=== PATIENT | female | born 1930 | race Caucasian/White ===

== ENCOUNTER 2018-02-10 17:41 | Observation (INO) | payer MEDICARE, MEDICAID ==
[2018-02-10 18:27] LABS: Hemoglobin 9.3 g/dL (12.0-16.0); Mean Corpuscular HGB CONC 32.4 g/dL (32.0-36.0); Mean Corpuscular Hemoglobin 37.9 pg (27.0-31.0); Platelet Count 299 thou/uL (130-400); Red Blood Cell (RBC) Count 2.46 mill/uL (4.20-5.40); White Blood Cell (WBC) Count 7.7 thou/uL (4.8-10.8)
[2018-02-10 18:38] LABS: Anisocytosis MODERATE=16-30 cells (100X) (0-5/hpf); Band 12 % (5-11); Eosinophils 1 % (0-10); Lymphocytes 17 % (21-51); MDiff Complete? YES; Macrocytosis SLIGHT = 6-15 cells (100X) (0-5/hpf); Monocytes 2 % (0-10); Neutrophil 66 % (42-75); Nucleated RBC 2 % (0); Ovalocytes SLIGHT = 2-5 cells (100X) (0-1/hpf); PLT Morphology Comment Appears Adequate; Polychromasia SLIGHT = 2-3 cells (100X) (0-2/hpf); Schistocytes SLIGHT = 2-5 cells (100X) (0-1/hpf)
[2018-02-10 18:39] LABS: ALT (SGPT) 44 U/L (8-55); AST (SGOT) 33 U/L (5-34); Albumin 4.3 g/dL (3.4-4.8); Alkaline Phosphatase 103 U/L (40-150); Anion Gap 13 mmol/L (10-20); BUN (Urea Nitrogen) 31 mg/dL (9.8-20.1); Bilirubin, Total 1.4 mg/dL (0.2-1.2); CK (CPK) 83 U/L (29-168); Calc. Creatinine Clearance 0 mL/min (70-130); Calcium 9.3 mg/dL (7.8-10.44); Carbon Dioxide 23 mmol/L (23-31); Chloride 109 mmol/L (98-107); Estimated GFR-MDRD 39; Globulin 2.8 g/dL (2.4-3.5); Glucose 123 mg/dL (83-110); Potassium 4.7 mmol/L (3.5-5.1); Protein, Total 7.1 g/dL (6.0-8.3); Sodium 140 mmol/L (136-145)
[2018-02-10 18:43] LABS: CKMB 1.7 ng/mL (0-6.6); Troponin I Less than 0.010 ng/mL (< 0.028)
[2018-02-10] MEDS ORDERED: Nitroglycerin 2% Ointment 1 INCH/1 GM Packet ONE (18:57)
[2018-02-10] MEDS ORDERED: Nitroglycerin 0.4 MG TAB (25 Tab Bottle) ONE (18:57)
--- NOTE | 2018-02-10 19:44 | RAD ---
PORTABLE CHEST: 02/10/2018 PROVIDED CLINICAL HISTORY: Chest pain and shortness of breath. COMPARISON: 02/13/2016 FINDINGS: The cardiac silhouette remains enlarged. Median sternotomy changes and atherosclerosis are redemonst rated. Chronic appearing lung parenchymal changes are redemonstrated. A prominent appearance to the right hilum is again seen, stable. Blunting of the right costophrenic angle is again noted, slightl y more conspicuous than on the prior study. There is no evidence for pneumothorax. IMPRESSION: No evidence for an acute cardiopulmonary process. POS: [facility]
[2018-02-10 22:09] LABS: Troponin I 0.012 ng/mL (< 0.028)
[2018-02-10] MEDS ORDERED: Acetaminophen 325 MG TAB PO PRN ×2 (22:10→22:36)
[2018-02-10 22:15] VITALS: BMI 21.4
[2018-02-10] MEDS ORDERED: Ondansetron HCl/PF 4 MG/2 ML Vial IVP PRN (22:36)
[2018-02-10] MEDS ORDERED: Ondansetron ODT 4 MG TAB PO PRN (22:36)
[2018-02-10] MEDS ORDERED: Temazepam 15 MG CAP PO PRN (22:37)
[2018-02-10] MEDS ORDERED: cloNIDine 0.1 MG TAB PO SCH (22:45)
[2018-02-11 01:19] LABS: Troponin I 0.016 ng/mL (< 0.028)
[2018-02-11] MEDS ORDERED: Calcium Carbonate 500 MG ChewTAB PO PRN (02:35)
[2018-02-11] MEDS ORDERED: Mag-Al 1200 mg/1200 mg/30 ML UDCUP PO PRN (02:35)
[2018-02-11] MEDS ORDERED: Senokot 8.6 MG TAB PO PRN (02:35)
[2018-02-11] MEDS ORDERED: Nitroglycerin 0.4 MG TAB (25 Tab Bottle) PO PRN (02:35)
[2018-02-11] MEDS ORDERED: Nitroglycerin 2% Ointment 1 INCH/1 GM Packet TOP SCH (03:00)
[2018-02-11] MEDS ORDERED: Pantoprazole 40 MG VIAL IVP SCH (03:15)
--- NOTE | 2018-02-11 03:18 | HP ---
DATE OF ADMISSION: 02/11/2018 Patient was seen and examined on 02/11/2018 CHIEF COMPLAINT: Chest discomfort. HISTORY OF PRESENT ILLNESS: Patient is an 87-year-old female followed at [facility] pres ented to the emergency room with chest discomfort that started around 4:30 p.m. She also felt nauseo us and had 4-5 episodes of vomiting. She denies any diaphoresis, palpitations, or syncope. No willard e in her lower extremity edema reported. She is compliant with all of her home medications. She had similar chest pain 4 days ago that lasted for 3 hours or so. The chest discomfort was pressure-like 8/10, without any aggravating or relieving factor. She had some shortness of breath that has improv ed. In the emergency room, EKG showed sinus rhythm with right-bundle branch block. Troponins were negati ve. She received aspirin, sublingual nitroglycerin, and 1-inch nitropatch was placed. PAST MEDICAL HISTORY: 1. Coronary artery disease, status post coronary artery bypass grafting. 2. Hypertension. 3. Chronic diastolic heart failure. 4. Hypothyroidism. 5. Chronic anemia requiring blood transfusions in the past. She is currently followed by Dr. Farnsworth. 6. History of paroxysmal atrial fibrillation, not an anticoagulation candidate. 7. Chronic kidney disease, stage 3. 8. Degenerative joint disease. 9. Hypertension. 10. History of TIA. 11. Dyslipidemia. PAST SURGICAL HISTORY: 1. Coronary artery bypass grafting. 2. Bladder lift surgery. 3. Hysterectomy. 4. Left knee surgery. 5. Left hip surgery. ALLERGIES: Patient is allergic to SULFA. CURRENT HOME MEDICATIONS: Aggrenox twice a day, Lipitor 80 mg daily, clonidine 0.1 mg twice a day, f entanyl patch 50 mcg daily, Advair Diskus 250/50 b.i.d., hydralazine 50 mg 3 times daily, levothyroxi ne 25 mcg daily, metoprolol tartrate 50 mg b.i.d., temazepam as needed, terazosin 5 mg at bedtime, to rsemide 20 mg daily. SOCIAL HISTORY: Patient currently lives at home. Denies any smoking, alcohol, or drug use. She has good family support. She makes her own decision with help of her family. FAMILY HISTORY: Patient is adopted. REVIEW OF SYSTEMS: The following complete review of systems was negative, unless otherwise mentioned in the HPI or below: Constitutional: Weight loss or gain, ability to conduct usual activities. Sk in: Rash, itching. Eyes: Double vision, pain. ENT/Mouth: Nose bleeding, neck stiffness, pain, te nderness. Cardiovascular: Palpitations, dyspnea on exertion, orthopnea. Respiratory: Shortness of breath, wheezing, cough, hemoptysis, fever, or night sweats. Gastrointestinal: Poor appetite, abdo michael pain, heartburn, nausea, vomiting, constipation, or diarrhea. Genitourinary: Urgency, frequen cy, dysuria, nocturia. Musculoskeletal: Pain, swelling. Neurologic/Psychiatric: Anxiety, depressi on. Allergy/Immunologic: Skin rash, bleeding tendency. PHYSICAL EXAMINATION: VITAL SIGNS: In the emergency room showed temperature 98.1, respiration 24, pulse rate of 57 with a blood pressure of 204/71 with O2 saturation 98% on room air. GENERAL: An 87-year-old female in no apparent distress. Continues to have chest discomfort. HEENT: Head atraumatic, normocephalic. Sclerae anicteric. Moist mucous membrane. No oral lesion. NECK: Supple, no JVD appreciated. No carotid bruit. LUNGS: Clear to auscultation bilaterally with scattered rhonchi. No significant rales or wheezing n oted. HEART: S1, S2 present. Regular rate and rhythm. Healed midline scar from previous CABG. There was 3/6 systolic murmur over the mitral area. ABDOMEN: Soft, nontender, bowel sounds present. EXTREMITIES: Left lower extremity 2+ edema noted. Per patient report, this is chronic. NEUROLOGIC: Grossly nonfocal, moves all four extremities. PSYCHIATRY: Alert, awake, oriented x3. SKIN: Warm and dry. LYMPH NODES: No palpable lymph nodes in the neck. PERIPHERAL VASCULAR: Radial pulses palpable bilaterally. MUSCULOSKELETAL: No joint swelling or tenderness. LABORATORY FINDINGS: 1. CBC showed WBC 7.7 with hemoglobin 9.3, hematocrit 28.8, platelet of 299. 2. Chemistries showed sodium 140, potassium 4.7, chloride 109, bicarbonate 23, BUN 31, creatinine 1. 29. 3. Total bilirubin 1.4. 4. Troponins were negative. Chest x-ray by my review was negative for infiltrate or significant edema. EKG by my review showed s inus bradycardia with right axis deviation with incomplete right bundle branch block and nonspecific ST-T wave changes. IMPRESSION: 1. Chest discomfort, rule out acute coronary syndrome. Chest pain with nausea and 4-5 episodes of v omiting. Possibilities include anginal pain versus peptic ulcer disease. 2. Coronary artery disease, status post coronary artery bypass grafting. 3. History of transient ischemic attack currently on Aggrenox. 4. Chronic diastolic heart failure. 5. Hypertension with hypertensive urgency. 6. Chronic anemia requiring blood transfusions followed by Dr. Farnsworth. 7. Chronic pain syndrome on chronic fentanyl patch. 8. Hypothyroidism. 9. Anxiety. 10. Hyperlipidemia. 11. Degenerative joint disease. 12. History of paroxysmal atrial fibrillation. 13. Chronic obstructive pulmonary disease. PLAN: Patient will be monitored on the telemetry unit overnight. Cardiology will be consulted. We will check BNP in a.m. We will repeat CBC in a.m. due to 12% bandemia. We will continue all of her home medications. P.r.n. medications will be added. She will benefit from a GI consultation as outp atient due to nausea and vomiting. We will start her on PPIs. Plan of care was discussed with patient in detail. She stated understanding.
[2018-02-11] MEDS: Levothyroxine Sodium 25 MCG TAB PO SCH (04:12)
[2018-02-11 06:09] LABS: #Basophils 0.1 thou/uL (0.0-0.2); #Lymphocytes 0.6 thou/uL (1.20-3.40); #Monocytes 0.7 thou/uL (0.11-0.59); #Neutrophils 6.7 thou/uL (1.40-6.50); %Basophils 0.7 % (0.0-1.0); %Eosinophils 0.1 % (0.0-10.0); %Lymphocytes 7.6 % (21.0-51.0); %Neutrophils 82.6 % (42.0-75.0); Hemoglobin 7.9 g/dL (12.0-16.0); Mean Corpuscular HGB CONC 32.3 g/dL (32.0-36.0); Mean Corpuscular Hemoglobin 38.3 pg (27.0-31.0); Mean Platelet Volume 8.6 fL (7.4-10.4); Platelet Count 257 thou/uL (130-400); Red Blood Cell (RBC) Count 2.06 mill/uL (4.20-5.40); White Blood Cell (WBC) Count 8.1 thou/uL (4.8-10.8)
[2018-02-11 06:24] LABS: ALT (SGPT) 139 U/L (8-55); AST (SGOT) 175 U/L (5-34); Albumin 3.7 g/dL (3.4-4.8); Alkaline Phosphatase 217 U/L (40-150); Anion Gap 10 mmol/L (10-20); BUN (Urea Nitrogen) 31 mg/dL (9.8-20.1); Bilirubin, Total 1.3 mg/dL (0.2-1.2); Calc. Creatinine Clearance 24 mL/min (70-130); Calcium 9.2 mg/dL (7.8-10.44); Carbon Dioxide 26 mmol/L (23-31); Chloride 109 mmol/L (98-107); Estimated GFR-MDRD 38; Globulin 2.3 g/dL (2.4-3.5); Glucose 122 mg/dL (83-110); Lipase 28 U/L (8-78); Magnesium 2.4 mg/dL (1.6-2.6); Phosphorus 3.9 mg/dL (2.3-4.7); Potassium 4.6 mmol/L (3.5-5.1); Sodium 140 mmol/L (136-145)
--- NOTE | 2018-02-11 08:10 | ULT ---
RIGHT UPPER QUADRANT SONOGRAM: HISTORY: Right upper quadrant pain. Abnormal liver function tests. FINDINGS: A small amount of echogenic sludge and small nonshadowing stones are present within the gallbladder n isadora. There is minimal pericholecystic fluid. Gallbladder is distended slightly greater than 8 cm wi th borderline wall thickening. The common duct is 0.5 cm. The liver shows no focal abnormalities. Right pleural fluid is partially visualized. IMPRESSION: Cholelithiasis. Sonographic findings of acute cholecystitis include distention, borderline wall thic kening, and a small amount of pericholecystic fluid. Clinical correlation regarding other signs and symptoms of acute cholecystitis is required. POS: [facility]
[2018-02-11] MEDS: Docusate 100 MG CAP PO SCH ×2 (08:28→19:57)
[2018-02-11] MEDS: Aggrenox 200-25mg CAP PO SCH ×2 (08:28→19:56)
[2018-02-11] MEDS: cloNIDine 0.1 MG TAB PO SCH ×2 (08:28→19:56)
[2018-02-11] MEDS: Torsemide 20 MG TAB PO SCH (08:29)
[2018-02-11] MEDS ORDERED: Metoprolol Tartrate 50 MG TAB PO SCH (09:00)
[2018-02-11] MEDS: hydrALAZINE 20 MG/ML VIAL SLOW IVP PRN (12:36)
--- NOTE | 2018-02-11 19:53 | CON ---
DATE OF CONSULTATION: 02/11/2018 CHIEF COMPLAINT: Chest pain. HISTORY OF PRESENT ILLNESS: This is an 87-year-old female who presents with a history of chest pain, substernal, sharp, kind of a burning pain, admitted to the hospital, had a cardiac workup which is n egative, found to have elevation of her liver function test, has had ultrasound. Ultrasound shows ga llstones, common bile duct is 5 mm. She has never had symptoms of right upper quadrant pain, jaundic e or pancreatitis. Never known previous history of gallstones. Denies chronic abdominal pain. She does have occasional nausea and reflux type symptoms. PAST MEDICAL HISTORY: Includes coronary artery disease, CHF, hypothyroidism; anemia, chronic; atrial fibrillation, stage 3 kidney disease, hypertension, and dyslipidemia. PAST SURGICAL HISTORY: CABG, bladder lift, hysterectomy, left knee, left hip. ALLERGIES: allergic to SULFA medicine. See list. SOCIAL HISTORY: Lives at home. No smoking, alcohol or other drugs. REVIEW OF SYSTEMS: Ten system review of systems is otherwise negative unless described above. PHYSICAL EXAMINATION: VITAL SIGNS: Blood pressure is 196/83, pulse is 70, respirations are 20, O2 sat is 94% on 2 liters. She is afebrile. HEENT: Sclerae are anicteric. Oropharynx clear. NECK: No lymphadenopathy. CHEST: Clear. HEART: Regular rate. ABDOMEN: Soft, nontender, nondistended. Well-healed midline incision without hernia. LABORATORY DATA: White blood cell count is 8, hemoglobin 7.9, platelet count is 257. Sodium 140, po tassium 4.6, creatinine 1.31, bilirubin 1.3. AST, ALT are 175, 139. Alkaline phosphatase is 217, li pase normal at 28. Ultrasound shows gallstones, common bile duct 5 mm. ASSESSMENT AND PLAN: Gallstones, questionable whether she has symptoms or not. Given her liver func tion test, I explained to her that normally we would perform laparoscopic cholecystectomy and intraop erative cholangiogram. However, in her case, we could follow a more conservative approach. She is p retty adamant that she does not want any kind of surgical procedures now. She is convinced she had i ndigestion. I gave her my card. She is going to call my office if she develops further symptoms. H er liver function test elevation could be from a little passive congestion from right-sided heart sameer lure if she has that.
[2018-02-11] MEDS: Terazosin HCl 5 MG CAP PO SCH (19:56)
[2018-02-11] MEDS: Pantoprazole 40 MG VIAL IVP SCH (19:58)
[2018-02-11] MEDS ORDERED: Loratadine 10 MG TAB PO PRN (20:24)
--- NOTE | 2018-02-11 23:23 | PDOC.PN ---
- Subjective Encounter Start Date: 02/11/18 Encounter Start Time: 14:00 Subjective: follow up for chest pain. nsg notes rev, edd ovn, no new c/o -: no active chest pain, does still have occasional SOB with mild exertion and -: some nausea but is also quite hungry - Objective Resuscitation Status: Resuscitation Status FULL:Full Resuscitation Vital Signs & Weight: Vital Signs (12 hours) Temp Pulse Resp BP BP Pulse Ox 02/11/18 19:56 97.8 F 66 18 198/72 H 97 02/11/18 15:12 97.3 F L 70 21 H 196/83 H 94 L 02/11/18 13:34 61 177/97 H 02/11/18 12:36 62 208/84 H 02/11/18 12:30 62 208/84 H 02/11/18 11:42 97.9 F 62 20 195/84 H 97 Weight Weight 117 lb 1 oz I&O: 02/10/18 02/11/18 02/12/18 06:59 06:59 06:59 Intake Total 240 240 Output Total 200 700 Balance 40 -460 Result Diagrams: 02/11/18 00:40 02/11/18 00:40 Phys Exam - Physical Examination HEENT: moist MMs, sclera anicteric Respiratory: no wheezing, no rales, no rhonchi, clear to auscultation bilateral Cardiovascular: RRR, no significant murmur, no rub Gastrointestinal: soft, non-tender, no distention, positive bowel sounds Neurological: moves all 4 limbs Psychiatric: normal affect Dx/Plan - Plan * chest pain * negative troponins * incentive spirometry * appreciate cardiology c/s * ECHO with EF 55-60% noted elevated pulm aa pressure suggestive of PAH - continue O2 support, diuretics with torsemide and aggrenox use, will need continued o/p f/u nausea, vomiting, transaminitis * particularly in setting of transaminitis, concern for acute cholecystitis as contributing to patient's presentation * appreciate surgery c/s * pt declines surgical intervention at this point in time - will trial liquid diet, advance as tolerated as a bland diet * recheck CMP in AM, continue with medical management diet: as above activity: as above dvt ppx potential d/c in next 24-48 hrs if at baseline function, hemodynamically stable without further complaints or symptoms Review of Systems - Medications/Allergies Allergies/Adverse Reactions: Allergies Allergy/AdvReac Type Severity Reaction Status Date / Time Sulfa (Sulfonamide Allergy Mild Rash Verified 09/13/14 22:19 Antibiotics) Medications: Current Medications Acetaminophen (Tylenol) 650 mg PO Q4H PRN PRN Reason: Headache/Fever or Mild Pain Al Hydroxide/Mg Hydroxide (Maalox) 30 ml PO Q6H PRN PRN Reason: Heartburn or Indigestion Calcium Carbonate (Tums) 1,000 mg PO Q4H PRN PRN Reason: Heartburn or Indigestion Clonidine (Catapres) 0.1 mg PO Q4H PRN PRN Reason: Systolic BP > 180 Last Admin: 02/11/18 23:29 Dose: 0.1 mg Clonidine (Catapres) 0.1 mg PO BID [facility] Last Admin: 02/11/18 19:56 Dose: 0.1 mg Dipyridamole/Aspirin (Aggrenox) 1 cap PO BID [facility] Last Admin: 02/11/18 19:56 Dose: 1 cap Docusate Sodium (Colace) 100 mg PO BID [facility] Last Admin: 02/11/18 19:57 Dose: Not Given Fentanyl (Duragesic) 50 mcg TD Q3D [facility] Hydralazine HCl (Apresoline) 5 mg SLOW IVP Q4H PRN PRN Reason: SBP Greater Than 180 Last Admin: 02/11/18 12:36 Dose: 5 mg Levothyroxine Sodium (Synthroid) 25 mcg PO 0600 [facility] Last Admin: 02/11/18 04:12 Dose: 25 mcg Loratadine (Claritin) 10 mg PO DAILYPRN PRN PRN Reason: .ALLERGIES Last Admin: 02/11/18 20:53 Dose: 10 mg Nitroglycerin (Nitrostat) 0.4 mg PO Q5MIN PRN PRN Reason: Chest Pain Ondansetron HCl (Zofran Odt) 4 mg PO Q6H PRN PRN Reason: Nausea/Vomiting Last Admin: 02/10/18 22:50 Dose: 4 mg Ondansetron HCl (Zofran) 4 mg IVP Q6H PRN PRN Reason: Nausea/Vomiting Pantoprazole Sodium (Protonix) 40 mg IVP Q12HR [facility] Last Admin: 02/11/18 19:58 Dose: 40 mg Senna (Senokot) 2 tab PO HSPRN PRN PRN Reason: Constipation Sodium Chloride (Flush - Normal Saline) 10 ml IVF Q12HR [facility] Last Admin: 02/11/18 19:58 Dose: 10 ml Sodium Chloride (Flush - Normal Saline) 10 ml IVF PRN PRN PRN Reason: Saline Flush Temazepam (Restoril) 15 mg PO HS PRN PRN Reason: Insomnia Last Admin: 02/10/18 22:50 Dose: 15 mg Terazosin HCl (Hytrin) 5 mg PO HS [facility] Last Admin: 02/11/18 19:56 Dose: 5 mg Torsemide (Demadex) 20 mg PO DAILY [facility] Last Admin: 02/11/18 08:29 Dose: 20 mg
[2018-02-11] MEDS: cloNIDine 0.1 MG TAB PO PRN (23:29)
--- NOTE | 2018-02-12 00:20 | CON ---
DATE OF CONSULTATION: 02/11/2018 HISTORY OF PRESENT ILLNESS: Neetu Smith is an 87-year-old white female that I initially evaluated in 10/2011. At that time, she denied any previous cardiac problems. She was told that she had transient ischemic attack and a carotid Doppler was performed which showed 60%-70% left internal carotid artery stenosis in 06/2008. She was placed on Plavix, but not aspirin after that. I initially saw her in 10/2011. She has undergone laparoscopic vaginal hysterectomy and bilateral salpingo-oophorectomy and anterior repair with cystoscopy. During the procedure, it was noted that her ST segments depressed over baseline. Nitrates were placed and she seemed to have improvement in her EKG changes. She was placed on telemetry after surgery. She denied any history of exertional chest discomfort. She would have chest burning and reflux while supine in bed. Ultimately, she underwent cardiac catheterization which revealed left main and 3-vessel coronary artery disease with preserved left ventricular function. On 11/18/2011, she underwent CABG x5 with BARBER to the LAD, left radial to the first diagonal, separate reverse greater saphenous veins to the first obtuse marginal, second obtuse marginal, and right posterior descending. She had acute renal insufficiency after bypass surgery and was slow to undergo rehabilitation. She was discharged on postop day 22 with creatinine having come down to 1.7, BUN down to 95. She returned 6 days later with increased shortness of breath. She was found to have opacification of one-half of her lung field on the left and underwent thoracentesis removing 1 to 1.5 L. After that, she never came to the office for followup. I did not see her again until 11/2012 when she was admitted to the hospital with difficulty speaking. She also had supraventricular tachycardia with heart rates of 170-180. Echo revealed ejection fraction of 50% -55% with diastolic dysfunction. She was hospitalized again in 12/2012 with anemia and was transfused. Her hemoglobin was 5.3. She was again hospitalized in 01/2013, transfused 3 units of blood again for hemoglobin 6.8. She apparently underwent outpatient GI workup although I am not certain what that showed. She was seen intermittently in the office in 01/2013. She apparently developed a GI bleed after being placed on Plavix for TIA symptoms. I discontinued that and started her on Aggrenox. In 05/2013, she was placed on bone marrow medications. She denied any chest discomfort. She was again admitted in 2013 with increased cough with high sputum, then turning yellow and increasing leg edema. She would have some episodes of PND. It was felt that she had acute on chronic diastolic heart failure. She was diuresed. She returned to the office once in 03/2014 and in 04/2014. I have not seen her in the last 3-1/ 2 years since 06/2014. She now is admitted with increased episode of chest discomfort. On 02/07, she had 3 or 4 hours of chest discomfort accompanied by nausea and vomiting. This then resolved. Again, yesterday she had 4 or 5 hours of chest discomfort. The discomfort was continuous. She had some mild shortness of breath associated with that. She denies any chest discomfort today. PAST MEDICAL HISTORY: Hypertension, hyperlipidemia, coronary artery disease, COPD, history of diastolic heart failure, history of atrial fibrillation, renal insufficiency, arthritis, GERD, TIA, hypothyroidism, chronic anemia requiring blood transfusions, chronic kidney disease. OPERATIONS: CABG, bladder lift surgery, hysterectomy, left knee surgery, left hip surgery. MEDICATIONS: Aggrenox 1 b.i.d., atorvastatin 80 daily, clonidine 0.1 mg b.i.d. , fentanyl patch 50 mcg daily, Advair b.i.d., hydralazine 50 mg t.i.d., levothyroxine 25 mcg daily, metoprolol 50 b.i.d., temazepam p.r.n., terazosin 5 mg at bedtime, torsemide 20 daily. SOCIAL HISTORY: She does not smoke or drink. She has been for the past 15 years. FAMILY HISTORY: She is adopted. REVIEW OF SYSTEMS: A 12-point review of systems otherwise unremarkable. PHYSICAL EXAMINATION: VITAL SIGNS: Blood pressure 196/83, pulse of 70. HEENT: PERRL. NECK: Supple. CHEST: Reveals crackles at the bases. CARDIAC: S1 and S2 are normal without any S3 or S4. There is 1-2/6 systolic murmur. ABDOMEN: Normal bowel sounds without tenderness, organomegaly. EXTREMITIES: Revealed no edema on the right. Left leg had 2+ pretibial edema. NEUROLOGIC: Grossly intact. SKIN: Warm and dry. LABORATORY DATA: EKG revealed sinus bradycardia with incomplete right bundle branch block, nonspecific T-wave changes. Hemoglobin 7.9, hematocrit 24.4, white count 8100, platelets 257,000. Sodium 140, potassium 4.6, chloride 109, carbon dioxide 26, BUN 31, creatinine 1.31. Liver function tests initially were normal. They then increased to AST 175, ALT 139, alkaline phosphatase 217. Cardiac enzymes were normal x3. BNP 1199.5. Abdominal ultrasound revealed cholelithiasis with findings of acute cholecystitis including distention, borderline wall thickening, small area of pericholecystic fluid. Echocardiogram revealed ejection fraction of 55%-60% with left atrial enlargement, moderate mitral regurgitation, no aortic stenosis or regurgitation , moderate to severe tricuspid regurgitation, severely elevated pulmonary artery pressures with PA pressure of 70 mm. IMPRESSION: 1. Noncardiac chest pain - totally normal cardiac enzymes with 4-5 hours of chest pain on 02/07 as well as on 02/10, but totally negative enzymes. 2. Acute cholecystitis. 3. Status post coronary artery bypass graft. 4. Hypercholesterolemia. 5. Paroxysmal atrial fibrillation. 6. History of anemia with transfusions in the past. 7. Chronic obstructive pulmonary disease. 8. Hypertension. RECOMMENDATIONS: Ms. Smith's chest discomfort is atypical with negative cardiac enzymes despite prolonged chest pain, I do not feel that this is cardiac in nature. She probably needs to undergo a laparoscopic cholecystectomy. JACQUELIN
[2018-02-12] MEDS: Levothyroxine Sodium 25 MCG TAB PO SCH (04:35)
[2018-02-12] MEDS: hydrALAZINE 20 MG/ML VIAL SLOW IVP PRN (04:52)
[2018-02-12] MEDS ORDERED: fentaNYL 50 mcg/hour Patch TD SCH (09:00)
[2018-02-12] MEDS: Aggrenox 200-25mg CAP PO SCH ×2 (09:11→20:05)
[2018-02-12] MEDS: cloNIDine 0.1 MG TAB PO SCH ×2 (09:11→20:05)
[2018-02-12] MEDS: Torsemide 20 MG TAB PO SCH (09:11)
[2018-02-12] MEDS: Docusate 100 MG CAP PO SCH ×2 (09:11→20:07)
[2018-02-12] MEDS: Pantoprazole 40 MG VIAL IVP SCH ×2 (09:12→20:06)
--- NOTE | 2018-02-12 15:41 | PDOC.PN ---
- Subjective Encounter Start Date: 02/12/18 Encounter Start Time: 15:39 Ms. Smith was seen today in follow-up of chest pain. She says she feel " awful " today. She feels weak, and she continues to have some dyspnea. She says she feels like this when her hemoglobin falls. She sees an Oncologist at [facility], Dr. Farnsworth, who has to give her blood transfusions periodically. - Objective Resuscitation Status: Resuscitation Status FULL:Full Resuscitation MAR Reviewed: Yes Vital Signs & Weight: Vital Signs (12 hours) Temp Pulse Resp BP BP Pulse Ox 02/12/18 11:38 98.3 F 88 24 H 168/108 H 94 L 02/12/18 09:11 202/85 H 02/12/18 08:06 98.1 F 89 24 H 202/85 H 97 02/12/18 07:30 97.3 F L 69 18 02/12/18 05:55 95 02/12/18 05:20 69 170/66 H 02/12/18 04:52 59 L 190/78 H 02/12/18 04:36 85 L 02/12/18 04:35 97.6 F 66 18 190/78 H 99 Weight Weight 113 lb 3.2 oz I&O: 02/11/18 02/12/18 02/13/18 06:59 06:59 06:59 Intake Total 240 600 Output Total 200 1050 Balance 40 -450 Result Diagrams: 02/11/18 00:40 02/11/18 00:40 Phys Exam - Physical Examination HEENT: PERRLA Respiratory: no wheezing, no rales, no rhonchi, clear to auscultation bilateral Cardiovascular: RRR, no significant murmur, no rub Gastrointestinal: soft, non-tender, positive bowel sounds Musculoskeletal: no edema Neurological: non-focal, moves all 4 limbs Dx/Plan (1) Chest pain Code(s): R07.9 - CHEST PAIN, UNSPECIFIED Status: Acute (2) Elevated liver function tests Code(s): R79.89 - OTHER SPECIFIED ABNORMAL FINDINGS OF BLOOD CHEMISTRY Status : Acute (3) Coronary artery disease Code(s): I25.10 - ATHSCL HEART DISEASE OF [place] CORONARY ARTERY W/O ANG PCTRS Status: Acute (4) Hypertension Code(s): I10 - ESSENTIAL (PRIMARY) HYPERTENSION Status: Acute (5) Pulmonary hypertension Code(s): I27.20 - PULMONARY HYPERTENSION, UNSPECIFIED Status: Acute - Plan * Chest Pain- ? etiology- this appears to be resolving * Chronic anemia- ? some type of MDS- will transfuse a unit, and re-assess her tomorrow * Cholelithiasis- Surgery evaluation noted- will hold off on any surgery for the gallbladder at this time * Will re-check her LFT's in the AM * Pulmonary Hypertension- ? Primary vs. due to chronic lung disease- will assess her for home oxygen- and would recommend outpatient evaluation with at least a PFT. * HTN- blood pressure is elevated- will re-start Hydralazine * Likely home tomorrow
[2018-02-12] MEDS: hydrALAZINE 25 MG TAB PO SCH ×2 (16:06→20:05)
[2018-02-12] MEDS: Terazosin HCl 5 MG CAP PO SCH (20:06)
[2018-02-13 04:56] LABS: ALT (SGPT) 57 U/L (8-55); AST (SGOT) 34 U/L (5-34); Albumin 3.7 g/dL (3.4-4.8); Alkaline Phosphatase 133 U/L (40-150); Bilirubin, Direct 0.6 mg/dL (0.1-0.3); Bilirubin, Total 1.1 mg/dL (0.2-1.2); Protein, Total 6.3 g/dL (6.0-8.3)
[2018-02-13] MEDS: cloNIDine 0.1 MG TAB PO PRN (05:42)
[2018-02-13] MEDS: Levothyroxine Sodium 25 MCG TAB PO SCH (05:42)
[2018-02-13 05:49] LABS: Anisocytosis MODERATE=16-30 cells (100X) (0-5/hpf); Band 6 % (5-11); Elliptocytes SLIGHT = 2-5 cells (100X) (0-1/hpf); Hemoglobin 10.1 g/dL (12.0-16.0); Lymphocytes 20 % (21-51); MDiff Complete? YES; Macrocytosis SLIGHT = 6-15 cells (100X) (0-5/hpf); Mean Corpuscular Hemoglobin 36.9 pg (27.0-31.0); Mean Platelet Volume 8.5 fL (7.4-10.4); Monocytes 10 % (0-10); Neutrophil 64 % (42-75); PLT Morphology Comment Appears Adequate; Platelet Count 278 thou/uL (130-400); Red Blood Cell (RBC) Count 2.74 mill/uL (4.20-5.40); White Blood Cell (WBC) Count 5.8 thou/uL (4.8-10.8)
[2018-02-13] MEDS: hydrALAZINE 25 MG TAB PO SCH ×3 (07:53→19:41)
[2018-02-13] MEDS: cloNIDine 0.1 MG TAB PO SCH ×2 (07:53→19:42)
[2018-02-13] MEDS: Docusate 100 MG CAP PO SCH ×2 (07:54→19:43)
[2018-02-13] MEDS: Torsemide 20 MG TAB PO SCH (07:54)
[2018-02-13] MEDS: Aggrenox 200-25mg CAP PO SCH ×2 (07:54→19:43)
[2018-02-13] MEDS: Pantoprazole 40 MG VIAL IVP SCH ×2 (07:55→19:46)
--- NOTE | 2018-02-13 13:11 | PDOC.PN ---
- Subjective Encounter Start Date: 02/13/18 Encounter Start Time: 13:10 Ms. Smith was seen today in follow-up. She does not have any complaints today. She is breathing better, and feels a little stronger. We discussed concerns about her weakness, and recommened either Rehab or longterm. She is not interested in either. - Objective Resuscitation Status: Resuscitation Status FULL:Full Resuscitation MAR Reviewed: Yes Vital Signs & Weight: Vital Signs (12 hours) Temp Pulse Resp BP BP Pulse Ox 02/13/18 11:07 98.7 F 66 12 201/78 H 97 02/13/18 09:15 88 133/62 02/13/18 08:00 98.7 F 66 12 02/13/18 07:53 63 192/81 H 02/13/18 07:20 98.2 F 63 12 192/81 H 96 02/13/18 06:00 177/94 H 02/13/18 05:42 184/77 H 02/13/18 05:00 80 22 H 184/77 H 95 Weight Weight 114 lb 9.6 oz Most Recent Monitor Data Heart Rate from ECG 84 I&O: 02/12/18 02/13/18 02/14/18 06:59 06:59 06:59 Intake Total 600 1472 120 Output Total 1050 1000 700 Balance -450 472 -580 Result Diagrams: 02/13/18 04:05 02/11/18 00:40 Phys Exam - Physical Examination HEENT: PERRLA Respiratory: no wheezing, no rales, no rhonchi, clear to auscultation bilateral Cardiovascular: RRR, no significant murmur, no rub Gastrointestinal: soft, non-tender, positive bowel sounds Musculoskeletal: edema present trace pedal edema Dx/Plan (1) Chest pain Code(s): R07.9 - CHEST PAIN, UNSPECIFIED Status: Acute (2) Elevated liver function tests Code(s): R79.89 - OTHER SPECIFIED ABNORMAL FINDINGS OF BLOOD CHEMISTRY Status : Acute (3) Coronary artery disease Code(s): I25.10 - ATHSCL HEART DISEASE OF [place] CORONARY ARTERY W/O ANG PCTRS Status: Acute (4) Hypertension Code(s): I10 - ESSENTIAL (PRIMARY) HYPERTENSION Status: Acute (5) Pulmonary hypertension Code(s): I27.20 - PULMONARY HYPERTENSION, UNSPECIFIED Status: Acute - Plan * Chest pain- resolved * Anemia- better after transfusion * Cholelithiasis, and elevated LFT's- improved- discussed this with the patient and her daughter * HTN- labile- this may be better adjusted on an outpatient bases. * Possible discharge later today.
[2018-02-13] MEDS: Terazosin HCl 5 MG CAP PO SCH (19:42)
[2018-02-14] MEDS: Levothyroxine Sodium 25 MCG TAB PO SCH (04:07)
[2018-02-14] MEDS: cloNIDine 0.1 MG TAB PO SCH (08:20)
[2018-02-14] MEDS: hydrALAZINE 25 MG TAB PO SCH (08:23)
[2018-02-14] MEDS: Pantoprazole 40 MG VIAL IVP SCH (08:24)
[2018-02-14] MEDS: Docusate 100 MG CAP PO SCH (08:24)
[2018-02-14] MEDS: Aggrenox 200-25mg CAP PO SCH (08:24)
[2018-02-14] MEDS: Torsemide 20 MG TAB PO SCH (08:24)
[2018-02-14 12:09] VITALS: BP 153/70; TEMP 98.5
[2018-02-14] MEDS ORDERED: Tobramycin/dex OPTH 2.5 ML BOT EA EYE SCH (21:00)
[2018-02-14] MEDS ORDERED: Metoprolol Tartrate 50 MG TAB PO SCH (21:00)
--- NOTE | 2018-02-15 05:07 | DIS ---
DATE OF ADMISSION: 02/11/2018 DATE OF DISCHARGE: 02/14/2018 DISCHARGE DIAGNOSES: Noncardiac chest pain, elevated liver function tests, cholelithiasis, coronary artery disease, hypertension, and pulmonary hypertension. CONSULTATIONS: Cardiology, General Surgery. HISTORY OF PRESENT ILLNESS AND HOSPITAL COURSE: Ms. Sarah Renteria is an 87-year-old female who w as followed at [facility] and presented to the emergency room with chest discomfort that started about 4:30 p.m. on the day of admission associated with nausea and 4 to 5 episodes of vomitin g. She did not have diaphoresis, palpitations or syncope. There was no change in her lower extremit y edema. She was on prior home medications. She reported a similar chest pain about 4 days before p resentation, which lasted about 3 hours and was rated at 8/10 without any aggravating or relieving fa ctor. She also has some shortness of breath. Her heart rate improved before presenting. At the [facility] room, her EKG showed normal sinus rhythm, a right bundle branch block. Troponins were trended and were negative. She received aspirin, sublingual nitroglycerin and an inch of nitro patch was pl aced. She was then admitted for chest pain to rule out ACS. She was admitted on telemetry and revie wed by Cardiology, who made an assessment of noncardiac chest pain. She also had an abdominal ultras ound done, which reveals cholelithiasis with sonographic findings of acute cholecystitis including di stention, bladder wall thickening and small amount of pericholecystic fluid. Surgery was consulted, but the patient declined any surgical investigation or further investigation of her chest, but not re solved and she reported that she would like to go home. Due to her complaints of weakness while in [facility], subacute rehabilitation was discussed or placement after rehab facility, but patient evangelina recio denied any further services reported. She would like to be discharged home. The patient was then discharged home and she was deemed stable. PHYSICAL EXAMINATION: She was examined on the day of discharge. VITAL SIGNS: Temperature 98.5, pulse 76, respiratory rate 20, oxygen saturation 96%, blood pressure 153/90. GENERAL: Not in acute distress, sitting comfortably in bed. HEENT: PERRLA, EOMI, not pale, anicteric. Moist mucous membrane. RESPIRATORY: No wheezes, rales or rhonchi. Vesicular breath sounds bilaterally. CARDIOVASCULAR: Regular rate and rhythm. S1 and S2 only with no murmurs, rubs or gallops. ABDOMEN: Soft, nontender, nondistended. Positive bowel sounds. MUSCULOSKELETAL: Trace pedal edema. NEUROLOGIC: Alert and well oriented. SKIN: Warm, dry, well-perfused. No rashes or lesions. NEUROLOGIC: Alert, oriented. LABORATORY DATA: WBC 5.8, hemoglobin 10.1, platelet count 278. Sodium 140, potassium 4.6, chloride 109, carbon dioxide 26, anion gap 10, BUN 31, creatinine 1.31, glucose 122, calcium 9.2. IMAGING: Abdominal ultrasound: As stated in HPI/hospital course. Chest x-ray showed no evidence of acute cardiopulmonary process. PROCEDURES: None. DISCHARGE MEDICATIONS: Atorvastatin 80 mg daily, clonidine 0.4 mg b.i.d., hydralazine 50 mg t.i.d., metoprolol tartrate 50 mg twice a day, levothyroxine sodium 25 mcg daily, aspirin and dipyridamole 1 capsule twice a day, potassium chloride 10 mEq daily, temazepam 15 mg at bedtime as needed for insomn ia, Advair Diskus 250/50 one inhalation twice daily, fentanyl 50 mcg transdermal patch every 3 days, terazosin, hydrochloride 5 mg at bedtime, torsemide 20 mg daily, tobramycin/dexamethasone ophthalmic suspension 1 drop twice a day, ranitidine hydrochloride 150 mg twice a day, ferrous sulfate 325 mg da harinder before meals, diphenhydramine 25 mg every 6 hours as needed for allergies, calcitonin (salmon) sy nthetic 1 nasal spray daily, and trazodone hydrochloride 50 mg at bedtime. CONDITION AT DISCHARGE: Stable and improved. CARE GOALS: To follow up with her primary care physician within 1 week of discharge. ACTIVITY: To resume as tolerated. DIET: Heart healthy. REFERRALS: None. CODE STATUS: Discharge time 65 minutes including chart review and documentation.
== END 2018-02-14 14:43 | disposition home or self-care (01) ==
LOC: ERS 17:41 → 2SW 20:24
PROVIDERS: ADMIT Emergency Medicine; ATTEND Emergency Medicine
DX: R07.89 Other chest pain (principal); I25.10 Atherosclerotic heart disease of native coronary artery without angina pectoris; I16.0 Hypertensive urgency; I13.0 Hypertensive heart and chronic kidney disease with heart failure and stage 1 through stage 4 chronic kidney disease, or unspecified chronic kidney disease; I50.32 Chronic diastolic (congestive) heart failure; N18.3 Chronic kidney disease, stage 3 (moderate); K80.00 Calculus of gallbladder with acute cholecystitis without obstruction; I27.20 Pulmonary hypertension, unspecified; D64.9 Anemia, unspecified; G89.4 Chronic pain syndrome; E03.9 Hypothyroidism, unspecified; F41.9 Anxiety disorder, unspecified; E78.5 Hyperlipidemia, unspecified; M19.90 Unspecified osteoarthritis, unspecified site; J44.9 Chronic obstructive pulmonary disease, unspecified; I48.0 Paroxysmal atrial fibrillation; Z95.1 Presence of aortocoronary bypass graft; Z88.2 Allergy status to sulfonamides; Z79.899 Other long term (current) drug therapy
CPT/HCPCS: 36430; 71045; 76705; 80053 ×2; 80076; 82550; 82553; 83690; 83735; 83880; 84100; 84484 ×3; 85025 ×3; 86850; 86900; 86901; 86920; 93005; 93306; 94760 ×3; 96374; 96375; 96376 ×4; 97139 ×2; 99285; G0378 ×2; P9016; 36415; A4216; C9113; J0360; Q0162